=== PATIENT | male | born 1955 ===

== ENCOUNTER 2021-12-12 09:35 | Emergency (ER) | payer OTHER ==
[~2021-12-12] VITALS: Ht 177.8 cm; Wt 77.1 kg
[2021-12-12 10:32] VITALS: BP 165/85
[2021-12-12] MEDS ORDERED: KETOROLAC TROMETH 60MG/2ML VIAL IM ONE (10:45)
== END 2021-12-12 12:30 | disposition home or self-care (01) ==
LOC: EDBD 09:35 → ER 09:44
DX: M54.50 Low back pain, unspecified (principal); E78.5 Hyperlipidemia, unspecified
CPT/HCPCS: 72100; 72128; 72131; 93005; 96372; 99284; J1885